=== PATIENT | male | born 1960 | race Two or more races ===

== ENCOUNTER 2022-04-18 15:14 | Emergency (ER) | payer OTHER ==
[2022-04-18 16:10] VITALS: BP 156/90; PULSE 97; RESP 17; TEMP 99.2; BMI 27.4
[2022-04-18] MEDS ORDERED: ACETAMINOPHEN 500 MG TABLET (FP) PO ONE (16:52)
[2022-04-18] MEDS ORDERED: METOCLOPRAMIDE HCL 10 MG TABLET (FP) PO ONE ×2 (17:14→18:01)
[2022-04-18] MEDS ORDERED: ACETAMINOPHEN 325 MG TABLET (FP) ONE (17:15)
== END 2022-04-18 19:00 | disposition home or self-care (01) ==
LOC: JER 15:14
DX: R09.81 Nasal congestion (principal); R51.9 Headache, unspecified; R05.1 Acute cough
CPT/HCPCS: 0241U-QW; 70450-TC; 99284-25